=== PATIENT | male | born 1985 | race Caucasian/White ===

== ENCOUNTER 2021-05-31 02:32 | Emergency (ER) | payer BC ==
[~2021-05-31] VITALS: Ht 180 cm; Wt 86.0 kg
[2021-05-31 03:09] LABS: BILIRUBIN,URINE NEGATIVE (NEGATIVE); CLARITY,URINE CLEAR; COLOR,URINE YELLOW; GLUCOSE, URINE (UA) NEGATIVE (NEGATIVE); KETONES,URINE 1+ (NEGATIVE); LEUKOCYTE ESTERASE ,URINE NEGATIVE (NEGATIVE); NITRITE,URINE NEGATIVE (NEGATIVE); PH,URINE 5.5 (5-9); PROTEIN,URINE NEGATIVE (NEGATIVE)
[2021-05-31 03:14] LABS: BASOPHILS % (AUTO) 0 % (0-10); EOSINOPHILS # (AUTO) 0.2 10^3/uL (0.0-0.3); EOSINOPHILS % (AUTO) 2 % (0-10); HEMATOCRIT 45 % (40-54); HEMOGLOBIN 15.6 g/dL (13.3-17.7); LYMPHOCYTES # (AUTO) 0.5 10^3/uL (1.0-4.0); LYMPHOCYTES % (AUTO) 4 % (12-44); MEAN CORPUSCULAR HEMOGLOBIN 29 pg (25-34); MEAN CORPUSCULAR HGB CONC 35 g/dL (32-36); MEAN CORPUSCULAR VOLUME 83 fL (80-99); MEAN PLATELET VOLUME 9.9 fL (9.0-12.2); MONOCYTES # (AUTO) 0.7 10^3/uL (0.0-1.0); MONOCYTES % (AUTO) 6 % (0-12); NEUTROPHILS # (AUTO) 10.6 10^3/uL (1.8-7.8); NEUTROPHILS % (AUTO) 88 % (42-75); PLATELET COUNT 255 10^3/uL (130-400); WHITE BLOOD COUNT 12.1 10^3/uL (4.3-11.0)
[2021-05-31] MEDS ORDERED: LACTATED RINGERS 1,000 ML IV ONE (03:15)
[2021-05-31] MEDS ORDERED: FAMOTIDINE 20MG/2ML IV (PEPCID) IVP ONE (03:15)
[2021-05-31] MEDS ORDERED: fentaNYL INJ 100 MCG/2 ML AMP IVP ONE (03:15)
[2021-05-31] MEDS ORDERED: ONDANSETRON 4 MG/2 ML (SDV) Z0FRAN IVP ONE (03:15)
[2021-05-31 03:26] LABS: ALBUMIN 4.7 GM/DL (3.2-4.5)
[2021-05-31 03:27] LABS: CHLORIDE 105 MMOL/L (98-107); POTASSIUM 3.8 MMOL/L (3.6-5.0); SODIUM 141 MMOL/L (135-145)
[2021-05-31 03:28] LABS: CALCIUM 9.4 MG/DL (8.5-10.1)
[2021-05-31 03:29] LABS: GLUCOSE 118 MG/DL (70-105); TOTAL PROTEIN 7.8 GM/DL (6.4-8.2)
[2021-05-31 03:30] LABS: CARBON DIOXIDE 22 MMOL/L (21-32)
[2021-05-31 03:33] LABS: ALKALINE PHOSPHATASE 39 U/L (40-136); CREATININE SERUM 0.82 MG/DL (0.60-1.30); GFR ESTIMATED 106
[2021-05-31 03:34] LABS: BUN/CREATININE RATIO 21
[2021-05-31 03:36] LABS: ALANINE AMINOTRANSFERASE 23 U/L (0-55); LIPASE 20 U/L (8-78)
[2021-05-31 03:37] LABS: BACTERIA,URINE NEGATIVE /HPF
[2021-05-31 03:38] LABS: SQUAMOUS EPITHELIAL CELL,UR RARE /HPF
[2021-05-31 03:55] LABS: BAND NEUTROPHILS 2 %; LYMPHOCYTES % (MANUAL) 3 %; MONOCYTES % (MANUAL) 6 %; NEUTROPHILS % (MANUAL) 89 %; RBC MORPH NORMAL
--- NOTE | 2021-05-31 04:20 | ED Abdominal Pain ---
General Chief Complaint: Abdominal/GI Problems Stated Complaint: ABD PAIN Nursing Triage Note: TO ED VIA POV AND AMBULATORY TO ROOM 6 WITH C/O ABD PAIN SINCE NOON YESTERDAY. TONIGHT AT 2300 HE VOMITED. STATES CANNOT SLEEP, HAS TRIED HEATING PAD WITH NO RELIEF. PAIN IS A DULL, ACHE IN NATURE AND WAS DIFFUSE BUT NOW IS RUQ WITHOUT RADIATION. Source of Information: Patient Exam Limitations: No Limitations History of Present Illness Date Seen by Provider: May 31, 2021 Time Seen by Provider: 02:52 Initial Comments This 35-year-old gentleman presents to the emergency room with complaints of diffuse abdominal pain, more prominent on the right, since about noon. Pain started after eating a broccoli dish for lunch. Later in the day he vomited and it was surprised to note he vomited nearly the entire contents of his lunch. Pain now seems to be more focused in the right upper quadrant and to a lesser extent the right lower quadrant. He does have pain with bumps in the road and with rebound on palpation. He is still nauseated. He is afebrile but is mildly tachycardic. He has had no prior abdominal surgeries. Allergies and Home Medications Allergies Coded Allergies: Sulfa (Sulfonamide Antibiotics) (Verified Allergy, Unknown, 05/31/21) amoxicillin (Verified Allergy, Unknown, 05/31/21) codeine (Verified Allergy, Unknown, 05/31/21) Patient Home Medication List Home Medication List Reviewed: Yes Review of Systems Review of Systems Constitutional: no symptoms reported EENTM: No Symptoms Reported Respiratory: No Symptoms Reported Cardiovascular: No Symptoms Reported Gastrointestinal: See HPI Genitourinary: No Symptoms Reported Musculoskeletal: no symptoms reported Skin: no symptoms reported Psychiatric/Neurological: No Symptoms Reported Endocrine: No Symptoms Reported Past Tsnocny-Akiayw-Hnzdja Hx Patient Social History Tobacco Use?: No Substance use?: No Alcohol Use?: Yes Alcohol type: Wine Alcohol Frequency: Couple times a week Pt feels they are or have been: No Immunizations Up To Date Second COVID19 Vaccination Nitin: END January COVID19 Vaccine 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 oz. kg; 26.00 BMI Method: General Appearance: WD/WN, no apparent distress HEENT: PERRL/EOMI, normal ENT inspection Neck: normal inspection Respiratory: lungs clear, normal breath sounds, no respiratory distress Cardiovascular: regular rate, rhythm, no edema, no murmur Gastrointestinal: normal bowel sounds, soft, rebound, tenderness (Moderate in the right upper quadrant and mild in the right lower quadrant.) Extremities: normal inspection, no pedal edema Neurologic/Psychiatric: tongue and groove machine feeder II-XII nml as tested, no motor/sensory deficits, alert, oriented x 3, other (Mildly anxious) Skin: normal color, warm/dry Progress/Results/Core Measures Results/Orders Lab Results Laboratory Tests Test 05/31/21 02:45 05/31/21 03:05 Range/Units Urine Color YELLOW Urine Clarity CLEAR Urine pH 5.5 5-9 Urine Specific [place] >=1.030 1.016-1.022 Urine Protein NEGATIVE NEGATIVE Urine Glucose (UA) NEGATIVE NEGATIVE Urine Ketones 1+ H NEGATIVE Urine Nitrite NEGATIVE NEGATIVE Urine Bilirubin NEGATIVE NEGATIVE Urine Urobilinogen 0.2 < = 1.0 MG/DL Urine Leukocyte Esterase NEGATIVE NEGATIVE Urine RBC (Auto) NEGATIVE NEGATIVE Urine RBC NONE /HPF Urine WBC NONE /HPF Urine Squamous Epithelial Cells RARE /HPF Urine Crystals NONE /LPF Urine Bacteria NEGATIVE /HPF Urine Casts NONE /LPF Urine Mucus SMALL H /LPF Urine Culture Indicated NO White Blood Count 12.1 H 4.3-11.0 10^3/uL Red Blood Count 5.46 4.30-5.52 10^6/uL Hemoglobin 15.6 13.3-17.7 g/dL Hematocrit 45 40-54 % Mean Corpuscular Volume 83 80-99 fL Mean Corpuscular Hemoglobin 29 25-34 pg Mean Corpuscular Hemoglobin Concent 35 32-36 g/dL Red Cell Distribution Width 13.0 10.0-14.5 % Platelet Count 255 130-400 10^3/uL Mean Platelet Volume 9.9 9.0-12.2 fL Immature Granulocyte % (Auto) 0 % Neutrophils (%) (Auto) 88 H 42-75 % Lymphocytes (%) (Auto) 4 L 12-44 % Monocytes (%) (Auto) 6 0-12 % Eosinophils (%) (Auto) 2 0-10 % Basophils (%) (Auto) 0 0-10 % Neutrophils # (Auto) 10.6 H 1.8-7.8 10^3/uL Lymphocytes # (Auto) 0.5 L 1.0-4.0 10^3/uL Monocytes # (Auto) 0.7 0.0-1.0 10^3/uL Eosinophils # (Auto) 0.2 0.0-0.3 10^3/uL Basophils # (Auto) 0.0 0.0-0.1 10^3/uL Immature Granulocyte # (Auto) 0.0 0.0-0.1 10^3/uL Neutrophils % (Manual) 89 % Lymphocytes % (Manual) 3 % Monocytes % (Manual) 6 % Band Neutrophils 2 % Blood Morphology Comment NORMAL Sodium Level 141 135-145 MMOL/L Potassium Level 3.8 3.6-5.0 MMOL/L Chloride Level 105 98-107 MMOL/L Carbon Dioxide Level 22 21-32 MMOL/L Anion Gap 14 5-14 MMOL/L Blood Urea Nitrogen 17 7-18 MG/DL Creatinine 0.82 0.60-1.30 MG/DL Estimat Glomerular Filtration Rate 106 BUN/Creatinine Ratio 21 Glucose Level 118 H 70-105 MG/DL Calcium Level 9.4 8.5-10.1 MG/DL Corrected Calcium 8.5-10.1 MG/DL Total Bilirubin 2.0 H 0.1-1.0 MG/DL Aspartate Amino Transf (AST/SGOT) 18 5-34 U/L Alanine Aminotransferase (ALT/SGPT) 23 0-55 U/L Alkaline Phosphatase 39 L 40-136 U/L C-Reactive Protein High Sensitivity 0.35 0.00-0.50 MG/DL Total Protein 7.8 6.4-8.2 GM/DL Albumin 4.7 H 3.2-4.5 GM/DL Lipase 20 8-78 U/L My Orders Orders - ALEJA SHIELDS MD Ondansetron Injection (Zofran Injectio (05/31/21 03:15) Famotidine Injection (Pepcid Injection) (05/31/21 03:15) Fentanyl Inj (Sublimaze Injection) (05/31/21 03:15) Ed Iv/Invasive Line Start (05/31/21 03:01) Lactated Ringers (Lr 1000 Ml Iv Solution (05/31/21 03:15) Cbc With Automated Diff (05/31/21 03:01) Comprehensive Metabolic Panel (05/31/21 03:01) Hs C Reactive Protein (05/31/21 03:01) Lipase (05/31/21 03:01) Ua Culture If Indicated (05/31/21 03:01) Manual Differential (05/31/21 03:05) Ct Abdomen/Pelvis W (05/31/21 04:07) Iohexol Injection (Omnipaque 350 Mg/Ml 1 (05/31/21 04:30) Received Contrast (Hold Metformin- Contr (05/31/21 04:30) Ns (Ivpb) (Sodium Chloride 0.9% Ivpb Bag (05/31/21 04:30) Ketorolac Injection (Toradol Injection) (05/31/21 05:45) Promethazine Injection (Phenergan Injec (05/31/21 05:45) Medications Given in ED Current Medications Medications Dose Ordered Sig/Miguel Route Start Time Stop Time Status Last Admin Dose Admin Famotidine 20 mg ONCE ONCE IVP 05/31/21 03:15 05/31/21 03:16 DC 05/31/21 03:19 20 MG Fentanyl Citrate 50 mcg ONCE ONCE IVP 05/31/21 03:15 05/31/21 03:16 DC 05/31/21 03:19 50 MCG Lactated Ringer's 1,000 ml @ 0 mls/hr Q0M ONCE IV 05/31/21 03:15 05/31/21 03:16 DC 05/31/21 03:19 999 MLS/HR Ondansetron HCl 8 mg ONCE ONCE IVP 05/31/21 03:15 05/31/21 03:16 DC 05/31/21 03:18 8 MG Sodium Chloride 100 ml ONCE ONCE IV 05/31/21 04:30 05/31/21 04:36 DC 05/31/21 04:33 80 ML Vital Signs/I&O 05/31/21 02:40 Temp 36.9 Pulse 108 Resp 16 B/P (MAP) 138/82 (100) O2 Delivery Room Air Blood Pressure Mean: 100 Progress Progress Note #1: Time: 04:20 Progress Note Patient was treated with IV fluids, Zofran, fentanyl, and Pepcid. He is feeling somewhat improved. He is still mildly tachycardic even after a liter of IV fluid. He was also noted to have leukocytosis. We discussed further options for assessment including ultrasound later in the morning versus CT scan in the ER. We discussed risks and benefits of CT scan with risks including iodine dye exposure and radiation exposure. Patient elects to proceed with CT scan. Progress Note #2: Progress Note CT revealed no surgical pathology but did suggest enteritis. Patient will receive Toradol for his rebounding pain. Phenergan will be given for his rebounding nausea. Diagnostic Imaging Diagonstic Imaging: CT Plain Films/CT/US/NM/MRI: abdomen, pelvis Comments CT viewed by me and stat rad report reviewed. Enteritis was noted with no evidence of surgical pathology. Appendix and gallbladder appeared normal. Departure Impression Primary Impression: Right sided abdominal pain Additional Impressions: Nausea and vomiting Qualified Codes: R11.2 - Nausea with vomiting, unspecified Gastroenteritis Disposition: HOME, SELF-CARE Condition: Improved Departure-Patient Inst. Decision time for Depature: 05:47 Referrals: HUGO JOY DO (PCP/Family) Primary Care Physician Patient Instructions: Severe Abdominal Pain, Adult (DC), Nausea and Vomiting, Adult (DC) Add. Discharge Instructions: Adhere to a noncarbonated clear liquid diet for the next 24 hours. Then gradually advance your diet with small quantities of bland food as tolerated. You may take Tylenol (acetaminophen) and/or ibuprofen for pain or fever. Call with questions or concerns, and return to the ER if you have worsening symptoms. Use Zofran as prescribed for nausea and vomiting. All discharge instructions reviewed with patient and/or family. Voiced understanding. ALEJA SHIELDS MD May 31, 2021 04:20
[2021-05-31] MEDS ORDERED: NS 100 ML (IVPB) BAG IV ONE (04:30)
[2021-05-31] MEDS ORDERED: HOLD METFORMIN - RECEIVED CONTRAST 20 ML VIAL IV SCH (04:30)
[2021-05-31] MEDS ORDERED: IOHEXOL 350 MG/ML 100 ML (OMNIPAQUE 350) VIAL IV ONE (04:30)
[2021-05-31] MEDS ORDERED: PROMETHAZINE INJ 25 MG/ML (PHENERGAN) AMP IVP ONE (05:45)
[2021-05-31] MEDS ORDERED: KETOROLAC 30 MG/ML VIAL IVP ONE (05:45)
[2021-05-31 06:08] VITALS: BP 125/78
--- NOTE | 2021-05-31 06:22 | Diagnostic Imaging Report ---
PROCEDURE: CT abdomen and pelvis with contrast. TECHNIQUE: Multiple contiguous axial images were obtained through the abdomen and pelvis after administration of intravenous contrast. Auto Exposure Controls were utilized during the CT exam to meet ALARA standards for radiation dose reduction. All CT scans use one or more of the following dose optimizing techniques: automated exposure control, MA and/or KvP adjustment based on patient size and exam type or iterative reconstruction. INDICATION: Right side abdominal pain Lung bases are clear. Liver appears normal. Gallbladder appears normal. Pancreas appears normal. Spleen is not enlarged. Adrenals are normal. Kidneys appear normal. Aorta and IVC are unremarkable. Appendix is normal. Small bowel is not dilated. Colon appears normal. Urinary bladder is normal. Prostate is not enlarged. There is no intraperitoneal free air or free fluid. IMPRESSION: No acute abnormality seen in the abdomen or pelvis Dictated by: Dictated on workstation # [id number]
[2021-05-31] MEDS ORDERED: ONDA4TAB11 PO (10:52)
== END 2021-05-31 06:10 | disposition home or self-care (01) ==
LOC: ER 02:37
DX: K52.9 Noninfective gastroenteritis and colitis, unspecified (principal); I10 Essential (primary) hypertension
CPT/HCPCS: 36415; 74177; 80053; 81000; 83690; 85007; 85027; 86141